=== PATIENT | female | born 1965 | race Caucasian/White ===

== ENCOUNTER 2017-10-28 22:32 | Emergency (ER) | payer MEDICAID ==
[~2017-10-28] VITALS: Ht 162.6 cm; Wt 83.2 kg
[~2017-10-28 22:32] MED LIST: AMOX-422 PO; DOXE50CA4 PO; FLUT16SP2 BOTHNARES; GABA600T2 PO; GUAI1TBM19 PO; HYDR12.55 PO; TRAM50TA2 PO
[2017-10-28 22:45] VITALS: BP 135/74
[2017-10-28] MEDS ORDERED: cloNIDine 0.1 mg tablet PO ONE (23:40)
[2017-10-28] MEDS ORDERED: CLON-529 PO (23:42)
== END 2017-10-29 00:01 | disposition home or self-care (01) ==
LOC: ER 22:33
DX: F19.939 Other psychoactive substance use, unspecified with withdrawal, unspecified (principal); F12.10 Cannabis abuse, uncomplicated; F15.10 Other stimulant abuse, uncomplicated; G89.29 Other chronic pain; Z98.890 Other specified postprocedural states; Z88.5 Allergy status to narcotic agent; Z79.899 Other long term (current) drug therapy
CPT/HCPCS: 99283

== ENCOUNTER 2018-01-19 22:07 | Emergency (ER) | payer MEDICAID ==
[~2018-01-19] VITALS: Ht 157.5 cm; Wt 82.2 kg
[~2018-01-19 22:07] MED LIST changes: -AMOX-422 PO; +CLON-529 PO
[2018-01-19 22:11] VITALS: BP 127/70
== END 2018-01-19 22:48 | disposition home or self-care (01) ==
LOC: ER 22:08
DX: T16.1XXA Foreign body in right ear, initial encounter (principal); G89.29 Other chronic pain; M54.9 Dorsalgia, unspecified; F12.90 Cannabis use, unspecified, uncomplicated; F15.90 Other stimulant use, unspecified, uncomplicated; Z90.710 Acquired absence of both cervix and uterus; Z98.890 Other specified postprocedural states; Z88.5 Allergy status to narcotic agent; Z88.6 Allergy status to analgesic agent; Z79.899 Other long term (current) drug therapy; Y92.9 Unspecified place or not applicable
CPT/HCPCS: 99282

== ENCOUNTER 2020-07-21 08:37 | Day surgery (SDC) | payer MEDICAID ==
[2020-07-13 14:27] LABS: BASOPHILS % (AUTO) 0.8 % (0-1); EOSINOPHILS # (AUTO) 0.2 X10'3 (0-0.9); EOSINOPHILS % (AUTO) 3.6 % (0-6); LYMPHOCYTES # (AUTO) 2.1 X10'3 (1.1-4.8); LYMPHOCYTES % (AUTO) 36.3 % (21-51); MEAN CORPUSCULAR HEMOGLOBIN 30.5 PG (27.0-31.0); MEAN CORPUSCULAR HGB CONC 33.8 g/dL (33.0-36.5); MEAN CORPUSCULAR VOLUME 90.3 FL (78-98); MEAN PLATELET VOLUME 7.5 FL (7.4-10.4); MONOCYTES # (AUTO) 0.4 X10'3 (0-0.9); MONOCYTES % (AUTO) 6.5 % (2-12); NEUTROPHILS # (AUTO) 3.1 X10'3 (1.8-7.7); NEUTROPHILS % (AUTO) 52.8 % (42-75); PRE OP HEMOGLOBIN 13.9 g/dL (12.0-16.0); PRE OP PLATELET COUNT 257 X10'3 (140-440); RED BLOOD COUNT 4.54 X10'6 (4.20-5.60); RED CELL DISTRIBUTION WIDTH 13.4 % (11.5-14.5)
[2020-07-13 14:47] LABS: ALBUMIN 3.8 G/DL (3.4-5.0); ALKALINE PHOSPHATASE 81 IU/L (46-116); BLOOD UREA NITROGEN 9 MG/DL (7-18); BUN/CREATININE RATIO 9.7 (6.6-38.0); CALCIUM 8.8 MG/DL (8.5-10.1); CHLORIDE 106 MMOL/L (99-107); CREATININE 0.93 MG/DL (0.40-0.90); PRE OP ALT 25 U/L (30-65); PRE OP ANION GAP 8 (8-16); PRE OP AST 13 U/L (10-37); PRE OP BILIRUB, TOTAL 0.2 MG/DL (0.0-1.0); PRE OP GLUCOSE 104 MG/DL (70-104); PRE OP POTASSIUM 3.9 MMOL/L (3.4-5.1); PRE OP SODIUM 143 MMOL/L (135-145); TOTAL CARBON DIOXIDE 29.4 MMOL/L (24-32); TOTAL PROTEIN 7.6 G/DL (6.4-8.2); eGFR 63 ML/MIN
[~2020-07-21] VITALS: Ht 157.5 cm; Wt 92.0 kg
[~2020-07-21 08:37] MED LIST changes: -CLON-529 PO; -DOXE50CA4 PO; -FLUT16SP2 BOTHNARES; -GABA600T2 PO; -GUAI1TBM19 PO; -HYDR12.55 PO; +NO HOME MEDS; -TRAM50TA2 PO; +ceFAZolin 2gm in dextrose, iso 50 ML IV ONE; +famotidine 20mg tablet PO ONE; +ringers solution, lacted 1,000 ML IV SCH; +vancomycin 1,500 MG in NS 300ml IV soln IV ONE
[2020-07-21 08:50] VITALS: BP 142/52
[2020-07-21] MEDS ORDERED: methylPREDNISolone sod succ 125mg/2ml vial ONE (10:05)
[2020-07-21] MEDS ORDERED: BUPIVAcaine/PF 2.5 mg/ml (0.25%) 30ml vial ONE (10:06)
[2020-07-21] MEDS ORDERED: LIDOcaine 0.5% (5mg/ml) 50ml vial ONE (11:03)
[2020-07-21] MEDS ORDERED: ringers solution, lacted 1,000 ML IV SCH (11:20)
[2020-07-21] MEDS ORDERED: proCHLORperazine 10 MG/2 ml inj IV PRN (11:20)
[2020-07-21] MEDS ORDERED: ondansetron/PF 4mg/2ml inj IV PRN (11:20)
[2020-07-21] MEDS ORDERED: fentaNYL/PF 50MCG/1 ML 2ML syringe IV PRN ×2 (11:20)
[2020-07-21] MEDS ORDERED: meperidine/PF 25mg/ml syringe IV PRN ×3 (11:20)
[2020-07-21] MEDS ORDERED: acetaminophen 1,000mg/100ml IV 100 ML IV PRN (11:20)
[2020-07-21] MEDS ORDERED: fentaNYL/PF 50MCG/1 ML 2ML syringe ONE ×2 (11:22→12:04)
[2020-07-21] MEDS ORDERED: midazolam 2 mg/2 ml injection ONE (11:23)
[2020-07-21] MEDS ORDERED: propofol inj 20 ML IV ONE ×2 (11:38)
[2020-07-21 12:07] VITALS: BP 122/68
--- NOTE | 2020-07-21 12:07 | NUR ---
Received from OR via [facility] , accompanied by Anesthesiologist NHUNG and report given by Anesthesiolgist. PATIENT WITH 20G PIV IN LEFT UE RUNNING LR AT 100. RIGHT UE IN SPLINT, ALL CDI. + CAP REFILL AND SENSATION INTACT. NO DRAINAGE PRESENT. Addendum: 07/21/20 at 1224 by Taj Parada RN, RN Amended: Links added.
[2020-07-21 12:17] VITALS: BP 136/69
[2020-07-21 12:27] VITALS: BP 131/67
[2020-07-21 12:37] VITALS: BP 133/66
--- NOTE | 2020-07-21 12:47 | NUR ---
.I HAVE REVIEWED D/C INSTRUCTIONS WITH PATIENT AND FAMILY AND THEY HAVE VERBALIZED UNDERSTANDING. PATIENT D/C HOME WITH ALL BELONGINGS AND FAMILY GAVE TRANSPORT HOME.RIGHT UE DRESSING CDI. VSS. DENIES PAIN. FAMILY DROVE PATIENT HOME. Addendum: 07/21/20 at 1252 by Taj Parada RN, RN Amended: Links added.
== END 2020-07-21 12:47 | disposition home or self-care (01) ==
LOC: PAS 08:37
PROVIDERS: ATTEND Orthopaedic Surgery
DX: G56.01 Carpal tunnel syndrome, right upper limb (principal); M79.631 Pain in right forearm; E78.5 Hyperlipidemia, unspecified; E66.01 Morbid (severe) obesity due to excess calories; Z68.37 Body mass index [BMI] 37.0-37.9, adult; F90.9 Attention-deficit hyperactivity disorder, unspecified type; F31.9 Bipolar disorder, unspecified
CPT/HCPCS: 36415; 64719; 64721; 80053; 82948; 85025; 87635; A6222; J2001; J2250; J2704; J2930; J3010; J3370; J3490; J7040; A4215; A4565; A4618; A6449; A7000; J7120